=== PATIENT | female | born 1945 | race Hispanic/Latino ===

== ENCOUNTER 2019-04-06 13:24 | Inpatient (IN) | payer MEDICARE ==
--- NOTE | 2019-04-06 14:50 | RAD ---
KUB INDICATION: Renal stent placement COMPARISON: CT the abdomen and pelvis dated April 06, 2019 FINDINGS: Bowel gas: Nonspecific but without overt appearance of obstruction. Lung bases: Clear. Additional findings: There is a right ureteral stent that projects in expected position. There is pos terior lateral spinal instrumentation involving L3-L5 with laminectomies at L3-L5. Osseous structures: No acute osseous abnormality is demonstrated. IMPRESSION: 1. Right ureteral stent projects in the expected position.
--- NOTE | 2019-04-06 15:24 | PDOC.FPRHP ---
- History of Present Illness Chief Complaint: abdominal pain History of Present Illness: This is a 73yo F presenting to the ER today with right sided abdominal pain that started Friday. She endorses NV that started yesterday and today. She had a nephrostomy tube placed on 03/26/[address] Welch (urology from [facility]). She initially began with incontinence for several years and got a bladder mesh. She then started self cathing several years and having frequent UTIs. She then was seen by her urologist and noted to have worsening hydronephrosis which led to the stent placement. She has been having chills. Denies any chest pain, SOB. States she has a hx of being anemic and received blood prior to the stent placement. She is on iron and stool softeners and does report occasional loose stools. Endorses neuropathy in her feet. She has been taking her medications daily. She is currently on an abx from Dr. Ruano for her UTI. Per daughter at the bedside, she has been slightly more confused for the last day or so. She lives at home with her and is typically able to take care of herself and axox3. ED Course: 2g Meropenem - Allergies/Adverse Reactions Allergies Allergy/AdvReac Type Severity Reaction Status Date / Time codeine Allergy Verified 04/06/19 14:55 Penicillins Allergy Verified 04/06/19 14:55 - History PMHx: DM, gastroparesis, neuropathy PSHx: nephrology stent 03/26/19, back surgery (deteriorated disc), hysterectomy, cholecystectomy, bladder mesh FHx: grandmother - DM, brother - unknown cancer, father - lung cancer Social: denies alcohol/tobacco/drug use; lives at home with - Review of Systems General: reports: fever/chills. denies: weight/appetite/sleep changes, night sweats, fatigue ENT: denies: nasal congestion, rhinorrhea Respiratory: denies: cough, congestion, shortness of breath Cardiovascular: denies: chest pain, palpitation Gastrointestinal: reports: nausea, vomiting, diarrhea, abdominal pain. denies: constipation Genitourinary: denies: dysuria Skin: denies: rashes, lesions Musculoskeletal: denies: pain, tenderness, stiffness, swelling Neurological: denies: seizure, weakness - Vital signs BP: 114/54, MAP: 74, Pulse: 87, Resp: 21 (Non-Labored), Temp: 97.7 (Oral), Pain : 0, O2 sat: 98 on (Room Air), Time: 04/06/2019 13:49. Weight: 90Kg - Physical Exam Constitutional: awake, alert and oriented, well developed -Constitutional: mild distress HEENT: normocephalic and atraumatic, PERRLA, EOMI, grossly normal vision, grossly normal hearing, MMM Neck: supple, FROM Chest: no-tender to palpation, no lesions Heart: RRR, normal S1/S2, no murmurs/rubs/gallops Lungs: CTAB, no respiratory distress, good air movement, no rales/rhonchi, no wheezing, no retractions Abdomen: soft, bowel sounds present -Abdomen: TTP on right>left Musculoskeletal: normal structure, normal tone Neurological: no focal deficit Skin: no rash/lesions, good turgor, capillary refill <2 seconds Heme/Lymphatic: no unusual bruising or bleeding Psychiatric: normal mood and affect FMR H&P: Results - Labs Result Diagrams: 04/06/19 15:35 FMR H&P: A/P - Problem List (1) Malfunction of nephrostomy tube Current Visit: Yes Status: Acute Code(s): T83.098A - [facility] COMPL OF OTHER URINARY CATHETER, INITIAL ENCOUNTER (2) Hydronephrosis Current Visit: Yes Status: Chronic Code(s): N13.30 - UNSPECIFIED HYDRONEPHROSIS (3) Diabetes Current Visit: Yes Status: Chronic Code(s): E11.9 - TYPE 2 DIABETES MELLITUS WITHOUT COMPLICATIONS (4) Gastroparesis Current Visit: Yes Status: Chronic Code(s): K31.84 - GASTROPARESIS (5) UTI (urinary tract infection) Current Visit: Yes Status: Acute (6) Normocytic anemia Current Visit: Yes Status: Acute Code(s): D64.9 - ANEMIA, UNSPECIFIED - Plan Patient 73F with a PMHx of hydronephrosis, DM2, gastroparesis, urinary incontinence, diabetic neuropathy, and hydronephrosis s/p recent nephrostomy tube placement is admitted for: #Nephrostomy Tube Malfunction - worsening right hydronephrosis s/p nephrostomy tube placement on 03/26/19. - Abdominal CT: interval worsening of now very severe right hydroureteronephrosis despite presence of right ureteral stent; evidence for right stent malfunction; chronic severe left hydroureteronephrosis worse than before, chronic severe atrophy of left renal parenchyma, diffuse mural thickening of the urinary bladder, right suprarenal lymphadenopathy has worsened - Creatinine 3.5 at outside ED - Urology consulted from the ER, appreciate recommendations - Plan for IR percutaneous nephrostomy tube placement - NPO for procedure, will hold blood thinners #UTI - sediment in draining magallanes - UA UA+ nitrites, LE - prior urine cx resistant to levaquin - patient started on meropenem in the ED, will continue pending urine culture sensitivities #Normocytic Anemia -likely due to chronic kidney issues -recently had a blood transfusion -will continue to monitor h/h and transfuse as needed #DM, complicated by gastroparesis and neuropathy - Will continue home meds - ACHS accuchecks - ISS #Urinary Incontinence -self-caths 3x/day Diet: NPO VTE: SCDs DVT ppx: lovenox Code: FULL Dispo: admit to surgical, inpt for percutaneous nephrostomy tube placement Case discussed with Dr. Hugo FMR H&P: Upper Level - Plan Date/Time: 04/06/19 1522 I, Lynn Cadena MD, have evaluated this patient and agree with findings/plan as outlined by video production intern resident. Pertinent changes/additions are listed here. This is a 73yo F presenting today from [facility] for right sided abdominal pain s/p nephrostomy tube placement by urologist Dr. Ruano. Imaging at the outside ER showed worsening right hydronephrosis. Dr. Ruano unavailable so patient was sent here for repair/replacement of nephrostomy tube. Patient states that she has had abdominal pain since Friday and started with NV the last two days. The daughter is at the bedside who helped provide the hx. See video production intern note for full history/PE PE: General: mild distress HEENT: NC/AT, EOMI Pulm: CTAB Cardio: RRR, no M/R/G Abd: soft, TTP diffusely - more R>L MSK: FROM Psych: axox3, able to answer questions Plan: Malfunction of Nephrostomy Tube Patient with worsening right hydronephrosis s/p nephrostomy tube placement. - Urology Dr. Lacey consulted from the ER and plan for procedure. Appreciate recommendations. - Will keep NPO and hold blood thinners prior to procedure - On meropenem for UTI, last UTI MDR organism. Blood/Urine cx pending. Normocytic Anemia likely related to kidney issues. Pt did require blood transfusion prior to stent placement earlier this month. - Will continue to monitor closely and transfuse as needed DM complicated by gastroparesis and neuropathy - Continue home meds, SS Diet: NPO VTE: SCDs Code: FULL Dispo: admit to surgical floor, inpt Case discussed with Dr. Hugo Addendum - Attending - Attending Attestation Date/Time: 04/06/192055 I personally evaluated the patient and discussed the management with Dr. Hess/ Surinder I agree with the History, Examination, Assessment and Plan documented above with any addition or exceptions noted below.73 yo diabetic female with recurrent UTI and hx obstructive uropathy. Patient with ZACKARY on CKI secondary to obstructive uropathy s/p recent ureteral stent which is nonfunctional at this time. Urology consulted admit and place on broad spectrum antibiotics pending culture results and IR to perform percutaneous nephrostomy tube for right sided obstructive uropathy.
[2019-04-06 15:34] LABS: INR-International Normal Ratio 1.2; PTT 42.3 SEC (22.9-36.1); Prothrombin Time 15.1 SEC (12.0-14.7)
[2019-04-06 15:44] LABS: #Eosinphils 0.1 thou/uL (0.0-0.7); #Lymphocytes 0.8 thou/uL (1.20-3.40); #Monocytes 0.9 thou/uL (0.11-0.59); #Neutrophils 12.3 thou/uL (1.40-6.50); %Basophils 0.2 % (0.0-1.0); %Eosinophils 0.4 % (0.0-10.0); %Lymphocytes 5.5 % (21.0-51.0); %Monocytes 6.2 % (0.0-10.0); %Neutrophils 87.7 % (42.0-75.0); Hemoglobin 7.5 g/dL (12.0-16.0); Mean Corpuscular HGB CONC 33.3 g/dL (32.0-36.0); Mean Corpuscular Hemoglobin 31.5 pg (27.0-31.0); Mean Corpuscular Volume 94.6 fL (78.0-98.0); Mean Platelet Volume 9.4 fL (7.4-10.4); Platelet Count 234 thou/uL (130-400); RBC Distribution Width 15.6 % (11.5-14.5); Red Blood Cell (RBC) Count 2.39 mill/uL (4.20-5.40)
[2019-04-06] MEDS ORDERED: Meropenem 2 GM, Admixture Fee 1 EACH in Sodium Chloride 0.9% 100 ML IVPB SCH (16:30)
[2019-04-06] MEDS ORDERED: Acetaminophen 325 MG TAB PO PRN (17:27)
[2019-04-06] MEDS ORDERED: Ondansetron ODT 4 MG TAB PO PRN (17:27)
[2019-04-06] MEDS ORDERED: Dextrose 5% in Water 1,000 ML IV PRN (17:27)
[2019-04-06] MEDS ORDERED: Lactated Ringer's 1,000 ML IV SCH (17:27)
[2019-04-06] MEDS ORDERED: Ondansetron PF 4 MG/2 ML Vial IVP PRN (17:27)
[2019-04-06] MEDS ORDERED: HumaLOG 300 UNITS/3 ML VIAL SC PRN ×2 (17:27)
[2019-04-06 17:36] VITALS: BMI 31.5
[2019-04-06] MEDS: Sodium Chloride 0.9% 1,000 ML IV SCH (18:51)
[2019-04-06] MEDS: Docusate 100 MG CAP PO SCH (21:26)
[2019-04-06] MEDS: Famotidine/PF 20 mg/2ml Vial SLOW IVP SCH (21:26)
[2019-04-06] MEDS ORDERED: MEROPENEM 1 GM/50 ML 1 GM in Premix Bag 1 BAG IVPB SCH (22:00)
--- NOTE | 2019-04-07 00:22 | CON ---
DATE OF CONSULTATION: PRIMARY UROLOGIST: Dr. Dawit Nguyen. REASON FOR CONSULT: History of right hydronephrosis, status post ureteral stent. HISTORY OF PRESENT ILLNESS: Ms. Patel is a 73-year-old female, followed by Dr. Dawit Nguyen, [facility]. She presented to [facility], due to history of abdominal pain, with nausea. Subjective history of chills, ER clinical history as well as records from Dr. Nguyen's office, which I requested stat reviewed. The patient with history of chronic urinary retention, catheter dependent on CIC, she has a history of chronic kidney disease due to left grade 4 ureteral reflux with atrophic left kidney. Due to chronic right hydronephrosis, the patient underwent cystoscopy, right retrograde, dilation of the UVJ, ureteral stent placement on March 26, [address] Nguyen. She states that she has been catheterizing herself 3 times a day; however, the amount of return is somewhat obscure, as she is unable to tell me the exact amount of voiding urine amount. She has chronic renal insufficiency, has been provided Macrobid 100 mg 1 p.o. b.i.d. for [address] Nguyen based on her recent urine culture from March 18, 2019 from his office demonstrating multi-drug resistant Escherichia coli resistant to quinolones, sensitive to imipenem, ertapenem, Macrobid, tobramycin, Augmentin. CT of the abdomen and pelvis obtained from [place], which has been transferred to our system demonstrates atrophic left kidney, which I reviewed myself, severe right hydronephrosis with tortuous ureter, however, the stent is in good position. As she has hydronephrosis despite recent stent, I informed the patient regarding nephrostomy tube. The patient currently at [facility], Dr. Tavarez at bedside performed the ultrasound; however, there is decompression of her hydronephrosis on ultrasound. She did not have an indwelling Alexandra catheter when the CT was obtained, bladder is not significantly distended; however, there is a moderate amount of urine in the bladder on the CT scan. It appears that with an indwelling Alexandra catheter, her hydronephrosis on the right has resolved. Therefore, nephrostomy tube was terminated by Interventional Radiology. I did inform the emergency room to provide meropenem, based on her previous recent urine culture from her current urologist. Her baseline creatinine 2.0, per emergency room and was 3.5; however, I do not have the results. She is hemodynamically stable. Relates that she is comfortable after the Alexandra catheter has been placed. PAST MEDICAL HISTORY: Diabetes, gastroparesis, diabetic neuropathy. PAST SURGICAL HISTORY: Cysto, right ureteral dilatation, 6 x 24 double-J ureteral stent by Dr. Nguyen on March 26, 2019, hysterectomy, cholecystectomy, and history of mid urethral sling. FAMILY HISTORY: Positive for diabetes. SOCIAL HISTORY: Negative x3. Lives with her family. PHYSICAL EXAMINATION: VITAL SIGNS: Blood pressure 114/54, pulse 87, respirations 21, temperature 97.7 , pain currently rated minimal. GENERAL: The patient is somewhat fatigued, cooperative to physical exam. HEENT: Grossly unremarkable. HEART: Regular rate. LUNGS: Clear. ABDOMEN: Morbidly obese, protuberant. No rigidity. No rebound. No CVA tenderness. EXTREMITIES: No cyanosis, clubbing, or edema. NEUROLOGIC: No gross focal deficits. PSYCHIATRIC: Appears to be appropriate. PERTINENT LABORATORY AND IMAGING DATA: White count 14, hemoglobin 7.5, platelets 234, baseline creatinine per review of her previous urologist is 2.0, recent creatinine in [place] 3.5 CT of the abdomen and pelvis from [place], which I reviewed myself demonstrates atrophic left kidney, right hydroureteronephrosis with ureteral stent in the renal pelvis with tortuosity of the ureter. Bladder without Alexandra catheter. Urine culture from March 17, 2019 from her urologist demonstrates Escherichia coli sensitive to Augmentin, imipenem, Macrobid and Zosyn, resistant to Bactrim, quinolones. She has been on Macrobid 100 mg 1 p.o. b.i.d. for 10 days. IMPRESSION AND PLAN: 1. Ms. Patel is a 73-year-old female with history of diabetes, left atrophic kidney due to vesicoureteral reflux. 2. Chronic kidney disease. 3. 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 Nguyen. 4. Catheter dependent on CIC chronic urinary retention. Continue indwelling urethral Alexandra catheter, as she is likely catheterizing herself inefficiently, urine is turbid consistent with urinary tract infection. Recommend meropenem. I do not recommend Macrobid, as she presents with chronic renal insufficiency. I would recommend Infectious Disease consult, as she will require a PICC line, for prolonged antibiotic regimen. Continue indwelling urethral Alexandra catheter. As her hydronephrosis has resolved with indwelling Alexandra catheter, recommend medical treatment with antibiotics, indwelling Alexandra. Anticipate patient will be in- house for another 24-48 hours, ID consult to be initiated for IV antibiotics. The patient informed to follow up with her urologist upon discharge. Job ID: [id number] ARACELIS
[2019-04-07] MEDS: Sodium Chloride 0.9% 1,000 ML IV SCH ×4 (00:48→18:41)
[2019-04-07 05:16] LABS: #Basophils 0.1 thou/uL (0.0-0.2); #Eosinphils 0.2 thou/uL (0.0-0.7); #Lymphocytes 0.9 thou/uL (1.20-3.40); #Monocytes 0.8 thou/uL (0.11-0.59); #Neutrophils 9.1 thou/uL (1.40-6.50); %Basophils 0.5 % (0.0-1.0); %Eosinophils 1.5 % (0.0-10.0); %Lymphocytes 7.9 % (21.0-51.0); %Monocytes 6.9 % (0.0-10.0); %Neutrophils 83.2 % (42.0-75.0); Hemoglobin 7.8 g/dL (12.0-16.0); Mean Corpuscular HGB CONC 32.8 g/dL (32.0-36.0); Mean Corpuscular Hemoglobin 31.5 pg (27.0-31.0); Mean Platelet Volume 9.2 fL (7.4-10.4); Platelet Count 230 thou/uL (130-400); RBC Distribution Width 15.8 % (11.5-14.5); Red Blood Cell (RBC) Count 2.48 mill/uL (4.20-5.40); White Blood Cell (WBC) Count 10.9 thou/uL (4.8-10.8)
[2019-04-07 05:36] LABS: Anion Gap 13 mmol/L (10-20); BUN (Urea Nitrogen) 53 mg/dL (9.8-20.1); Calc. Creatinine Clearance 22 mL/min (70-130); Calcium 8.7 mg/dL (7.8-10.44); Carbon Dioxide 19 mmol/L (23-31); Chloride 109 mmol/L (98-107); Estimated GFR-MDRD 16; Glucose 91 mg/dL (83-110); Potassium 4.4 mmol/L (3.5-5.1); Sodium 137 mmol/L (136-145)
--- NOTE | 2019-04-07 06:36 | PDOC.FM ---
- Subjective Subjective: Pt was vomiting green emesis yesterday. Has been feeling somewhat better this AM. She feels dizzy when she moves her head to either side. Otherwise, she was told there would be no procedure per urology. Pt would like to drink some water. Reports she does not take anything at home like reglan 4 times per day for her known gastroparesis 2/2 to diabetes. - Objective MAR Reviewed: Yes Vital Signs & Weight: Vital Signs (12 hours) Temp Pulse Resp BP Pulse Ox 04/07/19 03:10 97.6 F 75 18 128/64 97 04/06/19 23:20 98.3 F 78 18 132/70 97 04/06/19 20:45 95 04/06/19 20:00 97.7 F 74 18 151/71 H 99 Weight Weight 80.739 kg I&O: 04/05/19 04/06/19 04/07/19 06:59 06:59 06:59 Intake Total 1780 Output Total 2024 Balance -245 Result Diagrams: 04/07/19 04:46 04/07/19 04:46 Phys Exam - Physical Examination Constitutional: NAD Respiratory: no wheezing, clear to auscultation bilateral Cardiovascular: RRR Gastrointestinal: soft (mild diffuse TTP, most tender just left to midline near epigastrium) Neurological: non-focal Psychiatric: normal affect, A&O x 3 Dx/Plan (1) Malfunction of nephrostomy tube Code(s): T83.098A - [facility] COMPL OF OTHER URINARY CATHETER, INITIAL ENCOUNTER Status: Acute (2) Normocytic anemia Code(s): D64.9 - ANEMIA, UNSPECIFIED Status: Acute (3) UTI (urinary tract infection) Status: Acute (4) Diabetes Code(s): E11.9 - TYPE 2 DIABETES MELLITUS WITHOUT COMPLICATIONS Status: Chronic (5) Gastroparesis Code(s): K31.84 - GASTROPARESIS Status: Chronic (6) Hydronephrosis Code(s): N13.30 - UNSPECIFIED HYDRONEPHROSIS Status: Chronic - Plan Plan: Patient 73F with a PMHx of hydronephrosis, DM2, gastroparesis, urinary incontinence, diabetic neuropathy, and hydronephrosis s/p recent nephrostomy tube placement is admitted for: #Nephrostomy Tube Malfunction # R Hydronephrosis - worsening right hydronephrosis s/p nephrostomy tube placement on 03/26/19. Improved w/ Magallanes catheter - Abdominal CT: interval worsening of now very severe right hydroureteronephrosis despite presence of right ureteral stent; evidence for right stent malfunction; chronic severe left hydroureteronephrosis worse than before, chronic severe atrophy of left renal parenchyma, diffuse mural thickening of the urinary bladder, right suprarenal lymphadenopathy has worsened - Creatinine 3.5 at outside ED. Improved. Baseline ~2. - Urology consulted from the ER, appreciate recommendations. Will continue magallanes catheter and consult ID. #UTI - sediment in draining magallanes - UA UA+ nitrites, LE - prior urine cx resistant to levaquin - patient started on meropenem in the ED, will continue pending urine culture sensitivities - consult ID. appreciate recs. #Normocytic Anemia -likely due to chronic kidney issues -recently had a blood transfusion -will continue to monitor h/h and transfuse as needed #DM, complicated by gastroparesis and neuropathy - Will continue home meds - ACHS accuchecks - ISS - will consider reglan 4x daily for gastroparesis #Urinary Incontinence -self-caths 3x/day. We will continue Magallanes Diet: NPO DVT ppx: lovenox Code: FULL Dispo: plan for d/c home after evaluation by ID physician and when patient is feeling better. LOS > 48H. Addendum - Attending - Attending Attestation Date/Time: 04/07/19 9852 I personally evaluated the patient and discussed the management with Dr. Rodriguez I agree with the History, Examination, Assessment and Plan documented above with any addition or exceptions noted below.Patient urine output improved with magallanes didnt look like nephrostomy was needed will await recommendations per ID for further antibiotics and length of treatment appreciate specialist input.
[2019-04-07] MEDS: Famotidine/PF 20 mg/2ml Vial SLOW IVP SCH (08:43)
[2019-04-07] MEDS ORDERED: FLU VACC TS2019-20(65YR UP)/PF 180 MCG/0.5 ML SYRINGE IM ONE (09:00)
[2019-04-07] MEDS ORDERED: Prevnar 13-Val Conj/PF 0.5 ML SYRINGE IM ONE (09:00)
--- NOTE | 2019-04-07 09:07 | PRG ---
DATE OF SERVICE: 04/07/2019 SUBJECTIVE: The patient's family at bedside, feels better. Denies flank pain or abdominal discomfort. OBJECTIVE: VITAL SIGNS: Stable at temperature 97, pulse 73, respiratory rate 18, oxygen saturations 96, oxygen saturation 146/68. I's and O's; 1779 in, 2024 out. ABDOMEN: Soft, nontender, and nondistended. No rigidity. No rebound. GENITOURINARY: Alexandra catheter demonstrating some turbid urine, concentrated yellow. PERTINENT LABORATORY DATA: Creatinine 2.9, her baseline creatinine is around 2.0. White count decreased from 10, hemoglobin 7.8, and platelet 230. IMPRESSION AND PLAN: 1. Ms. Patel is a 73-year-old morbidly obese female, followed by Dr. [facility]. Recent cysto, right ureteral stent. 2. History of chronic urinary retention, previously on CIC at home, failed outpatient CIC. 3. Right hydronephrosis with ureteral stent. Renal ultrasound yesterday performed, this demonstrates decompressed right hydronephrosis with indwelling Alexandra catheter. Her hydronephrosis due to incomplete emptying, as she has been performing CIC suboptimally at home. We will continue indwelling urethral Alexandra catheter. Previous history of Escherichia coli, multi-drug resistant, sensitive to meropenem. She was previously on Macrobid, which I do not recommend due to chronic renal insufficiency. Infectious Disease consult has been ordered, will likely require PICC line, outpatient meropenem. patient can be discharged home. When seen by Infectious Disease, antibiotic regimen provided. She will be discharged with indwelling Alexandra catheter and follow up with her urologist in [place]. Job ID: [id number] [facility]
[2019-04-07] MEDS: Docusate 100 MG CAP PO SCH ×2 (09:14→20:13)
[2019-04-07] MEDS: Pioglitazone HCl 15 MG TAB PO SCH (09:17)
[2019-04-07] MEDS: Glimepiride 4 MG TAB PO SCH (09:18)
[2019-04-07] MEDS: Meropenem 500 MG in Sodium Chloride 0.9% 100 ML IVPB SCH ×2 (10:24→22:04)
--- NOTE | 2019-04-07 11:01 | ULT ---
US Renal Bilateral STANDARD History: Evaluate for hydronephrosis Comparison: CT examination same day Findings: Real-time grayscale and color evaluation of the right kidney was performed to evaluate for hydronephrosis. Left kidney is atrophic with mild hydronephrosis. Moderate right hydronephrosis. Right kidney measures 13.5 x 6.1 x 5.2 cm and the left kidney measures 7.8 x 3.8 x 4 cm. Impression: Mild left and moderate right hydronephrosis.
[2019-04-07] MEDS ORDERED: Iopamidol 370 76% 50 ML VIAL FS ONE (13:58)
--- NOTE | 2019-04-07 16:58 | CON ---
DATE OF CONSULTATION: 04/07/2019 REASON FOR CONSULTATION: Hydronephrosis, neurogenic bladder with recurrent UTIs. HISTORY OF PRESENT ILLNESS: A 73-year-old patient with a history of quite severe neuropathy associated with type 2 diabetes with gastroparesis and neurogenic bladder which has required in-and-out catheterization. The patient lives in [place] with her and follows up with the primary care physician in the area, and has a urologist in [place]. She has had stents placed in the past reportedly, but most of her hydronephrosis is secondary to the bladder distention from the neuropathy. She has had cystoscopy and dilation of the right UVJ in 03/2019, but she has been self catheterizing only 3 times per day. Recently, she was given Macrobid for 10 days with a multidrug-resistant E coli being retrieved in the urine culture. At this time, she presented to the emergency room with worsening right-sided abdominal pain and bilateral flank pain, which started about 3 days before admission. She was having some chills identified as well. No headaches. No visual symptoms, sore throat, odynophagia, or dysphagia. Some vomiting intermittently whenever she eats, which is a chronic symptom. No dyspnea or chest pain. Left flank pain noted. No dysuria. She does self-catheterize 3 times a day at home. No joint symptoms. MEDICAL HISTORY: 1. Type 2 diabetes. 2. Neuropathy. 3. Gastroparesis. 4. Neurogenic bladder with in-and-out catheterization. 5. Prior stents. 6. Laminectomy. 7. Hysterectomy. 8. Cholecystectomy. 9. Bladder mesh placement. FAMILY HISTORY: Type 2 diabetes and lung cancer. SOCIAL HISTORY: Never smoker. Lives in [place] with . CURRENT MEDICATIONS: 1. P.r.n. medications. 2. Colace. 3. Pepcid. 4. Amaryl. 5. Insulin. 6. Meropenem. 7. Zofran. 8. Protonix. PHYSICAL EXAMINATION: VITAL SIGNS: T-max 98.8, blood pressure 130/60, pulse 76, respirations 20, and O2 saturation 99. SKIN: The patient has a peripheral IV access and is voiding with a Alexandra catheter. No lymphadenopathy. HEENT: Ocular movements conjugate. Sclerae white. Pupils are equal. Oral cavity with no nome teeth in the upper maxilla, quite a few teeth in the lower. Oral mucosa is normal. NECK: Supple. No jugular vein distention. LUNGS: Symmetric. Clear breath sounds. BACK: No back tenderness. HEART: S1 and S2. Regular rate. No S3 or S4. ABDOMEN: Mildly tender in the right flank area. No ascites or organomegaly noted. No bladder distention. EXTREMITIES: No joint inflammatory activity. Moves extremities equally. NEUROLOGIC: Awake, alert, oriented, follows commands. Speech is normal. LABORATORY DATA: White cell count 14,000 down to 10.9, hemoglobin 7.5, MCV 94, and platelets 234 with 87% neutrophils. INR 1.2. Sodium 137 and creatinine 2.92. Microbiology with a quite susceptible E coli, retrieved from the urine this time. The previous sample yielded very resistant pathogen susceptible only to meropenem, aminoglycoside, Macrodantin. ASSESSMENT: Type 2 diabetes with severe neuropathy and both gastroparesis and neurogenic bladder, requiring in and out catheterization, which the patient is unable to do according to recommendations and she is inadequately self catheterized with development of hydronephrosis and renal insufficiency. DISCUSSION: The patient will require continuation of antimicrobial therapy with ertapenem which can be administered once daily in the outpatient setting. PICC line placement. Treat for a total of 2 weeks or less. Evidently, the endpoint here, we will not be sterilization of the urine because she will need continuing indwelling Alexandra catheterization. She will be at risk for losing her renal function further and ended up with in dialysis or on dialysis. Job ID: [id number]
[2019-04-07] MEDS: Dextrose 50% Abboject 50 ML SYRINGE SLOW IVP PRN (17:27)
[2019-04-07 18:05] LABS: Glucose 251 mg/dL (83-110)
--- NOTE | 2019-04-07 19:51 | CON ---
DATE OF CONSULTATION: HISTORY OF PRESENT ILLNESS: Damari Patel is a 73-year-old female, who has a persistent UTI and with chronic kidney disease, and I have been asked to see her regarding placement of a Melo catheter for intravenous antibiotics. She is followed by Dr. Lacey. She has a right hydronephrosis with the ureteral stent due to incomplete emptying, doing the CIC at home. Apparently once discharged, she will follow up with the urologist in [place]. In addition, the patient is having some abdominal discomfort. She has had an infraumbilical midline incision for , open cholecystectomy right subcostal, and her medial upper abdomen. She has an incisional hernia, it is tender. ALLERGIES: CODEINE AND PENICILLINS. HABITS: Tobacco, none. Alcohol, none. MEDICATIONS: 1. Glimepiride. 2. Omeprazole. 3. Hiprex. 4. Pioglitazone. 5. Meropenem. PAST SURGICAL HISTORY: Open cholecystectomy right subcostal scar, infraumbilical incision C-sections, right ureteral stent, and lumbar surgery. SOCIAL HISTORY: The patient lives with her . Her family is present. REVIEW OF SYSTEMS: Noncontributory otherwise. No cardiac symptoms. No cardiac history. PHYSICAL EXAMINATION: VITAL SIGNS: 5 feet 3 inches, 178 pounds, and 31 BMI. 97.5, 76, 20, and 134/68. HEAD, EARS, EYES, NOSE, AND THROAT: Unremarkable. LUNGS: Clear to auscultation. CARDIAC: Regular rate and rhythm without murmur or gallop. ABDOMEN: Soft and obese. Right subcostal scar, medial scar, and incisional hernia that is tender. Infraumbilical scar. Protuberant abdomen. EXTREMITIES: Unremarkable. LABORATORY DATA: White count 10 and hemoglobin 7.8. Sodium 137, potassium 4.4, BUN 53, creatinine 2.92, and GFR 16. ASSESSMENT AND PLAN: 1. In need of long-term intravenous antibiotics for resistant urinary tract infection with a right ureteral stent. Escherichia coli is resistant. Dr. Cabrales has seen her. Plan placement of a Melo catheter tomorrow, IJ cuffed tunneled catheter. 2. Obesity. 3. Diabetes mellitus. 4. Incisional hernia. Plan CT scan abdomen without IV contrast, but with p.o. contrast to assess the incisional hernia. 5. Chronic kidney disease. Job ID: [id number]
[2019-04-07] MEDS: Dextrose 5 % And 0.9 % NaCl 1,000 ML IV SCH (20:14)
--- NOTE | 2019-04-07 22:22 | CT ---
CT of the abdomen and pelvis: 04/07/2019 COMPARISON: 04/06/2019 HISTORY: Right-sided pain, history of cholecystectomy, appendectomy, and lumbar spine surgery TECHNIQUE: Axial CT imaging obtained at 5 mm intervals from lung bases through pubic symphysis with o ral contrast. Coronal and sagittal reformatted imaging obtained. FINDINGS: The lack of IV contrast limits assessment of the viscera, vascular structures, and for lymp hadenopathy. The visualized lung bases are unremarkable. No free intraperitoneal air. There is a Alexandra catheter within the urinary bladder. There is nonspecific circumferential urinary bladder wall thickening. There is a double-J ureteral stent on the right. The proximal curl of the double-J ureteral stent on the right is within the region of the renal pelvis. There is questionable mild urot helial thickening in the region of the renal pelvis and proximal ureter on the right, which may reflect inflammatory change. Correlation with urinalysis suggested. No evidence for hydronephrosis on the right. The left kidney is markedly atrophic. The liver, spleen, pancreas, and adrenal glands demonstrate no acute findings. The marked hydronephrosis seen bilaterally on the prior examination has resolved following placement of the Alexandra catheter. There are multiple nonspecific mildly enlarged lymph nodes within the retroperitoneum posterior to th e right renal vein and posterior to the inferior vena cava which measure up to approximately 1.4 cm in short axis dimension. There is no evidence for bowel inflammatory change or bowel obstruction. There is a fat-containing um bilical hernia. Superior to this is a additional ventral hernia just to the right of midline, also containing fat. There is scattered atherosclerotic calcification of the abdominal aorta and its branches. Review of the osseous structures demonstrates no acute findings. There is multilevel lower lumbar spi ne fusion hardware. IMPRESSION: Interval resolution of previously noted bilateral hydronephrosis. Mild urothelial thicken ing on the right may be on the basis of recent obstruction or could be on the basis of inflammatory change. Correlation with urinalysis advised. There is nonspecific retroperitoneal lymphadenopathy on the right in the region of the renal vasculature and IVC for which short-term follow-up CT examination is suggested in 2-3 months.
[2019-04-08] MEDS: Dextrose 50% Abboject 50 ML SYRINGE SLOW IVP PRN ×2 (01:11→07:39)
--- NOTE | 2019-04-08 06:20 | PDOC.FM ---
- Subjective Subjective: Pt is feeling well this AM. Ate CLD and FLD for dinner. She understands she is to have catheter placed for IV abx. Family member states she has required halfway abx previously and they went to [facility] for daily abx administration. She has home health nursing currently who comes out once per week. Per patient the procedure today is scheduled for 1 pm. - Objective MAR Reviewed: Yes Vital Signs & Weight: Vital Signs (12 hours) Temp Pulse Resp BP Pulse Ox 04/08/19 03:15 97.4 F L 62 20 119/61 100 04/07/19 23:20 97.7 F 77 18 134/57 L 100 04/07/19 20:20 97.7 F 59 L 18 148/65 H 99 Weight Weight 80.739 kg I&O: 04/06/19 04/07/19 04/08/19 06:59 06:59 06:59 Intake Total 1780 3120 Output Total 2025 1200 Balance -245 1920 Result Diagrams: 04/08/19 06:53 04/08/19 06:53 Phys Exam - Physical Examination Constitutional: NAD Respiratory: no wheezing, clear to auscultation bilateral Cardiovascular: RRR Gastrointestinal: soft, non-tender, no distention, positive bowel sounds Psychiatric: A&O x 3 Dx/Plan (1) Malfunction of nephrostomy tube Code(s): T83.098A - [facility] COMPL OF OTHER URINARY CATHETER, INITIAL ENCOUNTER Status: Acute (2) Normocytic anemia Code(s): D64.9 - ANEMIA, UNSPECIFIED Status: Acute (3) UTI (urinary tract infection) Status: Acute (4) Diabetes Code(s): E11.9 - TYPE 2 DIABETES MELLITUS WITHOUT COMPLICATIONS Status: Chronic (5) Gastroparesis Code(s): K31.84 - GASTROPARESIS Status: Chronic (6) Hydronephrosis Code(s): N13.30 - UNSPECIFIED HYDRONEPHROSIS Status: Chronic - Plan Plan: Patient 73F with a PMHx of hydronephrosis, DM2, gastroparesis, urinary incontinence, diabetic neuropathy, and hydronephrosis s/p recent nephrostomy tube placement is admitted for: #Nephrostomy Tube Malfunction # R Hydronephrosis - worsening right hydronephrosis s/p nephrostomy tube placement on 03/26/19. Improved w/ Magallanes catheter - Abdominal CT: interval worsening of now very severe right hydroureteronephrosis despite presence of right ureteral stent; evidence for right stent malfunction; chronic severe left hydroureteronephrosis worse than before, chronic severe atrophy of left renal parenchyma, diffuse mural thickening of the urinary bladder, right suprarenal lymphadenopathy has worsened - Creatinine 3.5 at outside ED. Improved. Baseline ~2. - Urology consulted from the ER, appreciate recommendations. Will continue magallanes catheter. F/U w/ urology in [place] on discharge. - ID recommends ertapenem daily as outpatient. Consulted Gen Surg for placement of Melo catheter. #UTI - sediment in draining magallanes - UA UA+ nitrites, LE - prior urine cx resistant to levaquin - patient started on meropenem in the ED, will continue pending urine culture sensitivities - consult ID. appreciate recs. # Incisional Hernia - CT abd today w/ PO contrast. Ordered by Gen Surg since pt complaining of abd pain. # Normocytic Anemia -likely due to chronic kidney issues -recently had a blood transfusion -will continue to monitor h/h and transfuse as needed #DM, complicated by gastroparesis and neuropathy - Will continue home meds - ACHS accuchecks - ISS - will consider reglan 4x daily for gastroparesis #Urinary Incontinence -self-caths 3x/day. We will continue Magallanes Diet: NPO DVT ppx: lovenox Code: FULL Dispo: anticipate d/c no earlier than late evening or tomorrow, pending placement of Melo catheter, CT abd, and organization of outpatient abx administration. Addendum - Attending - Attending Attestation Date/Time: 04/08/19 5228 I personally evaluated the patient and discussed the management with Dr. Rodriguez I agree with the History, Examination, Assessment and Plan documented above with any addition or exceptions noted below. Patient treated for hypogylcemia with glucagon and D50 continue D5NS and stop sulfonuylurea. Patient with hickaman cath for outpt IV per ID recs and will go rec Nephrology consult and f/u outpt as well as Urologist in [place].
[2019-04-08] MEDS ORDERED: Lidocaine 1% w/Epinephrine 1:100K 20 ML VIAL ONE ×2 (06:47→10:18)
[2019-04-08] MEDS ORDERED: Bupivacaine 0.25% HCL 30 ML VIAL ONE (06:47)
[2019-04-08] MEDS: Dextrose 5 % And 0.9 % NaCl 1,000 ML IV SCH ×3 (06:49→21:58)
[2019-04-08 07:17] LABS: Anion Gap 12 mmol/L (10-20); BUN (Urea Nitrogen) 35 mg/dL (9.8-20.1); Calc. Creatinine Clearance 29 mL/min (70-130); Calcium 8.3 mg/dL (7.8-10.44); Carbon Dioxide 17 mmol/L (23-31); Chloride 110 mmol/L (98-107); Estimated GFR-MDRD 22; Potassium 4.1 mmol/L (3.5-5.1); Sodium 135 mmol/L (136-145)
[2019-04-08 07:19] LABS: #Basophils 0.1 thou/uL (0.0-0.2); #Eosinphils 0.1 thou/uL (0.0-0.7); #Lymphocytes 1.1 thou/uL (1.20-3.40); #Monocytes 0.5 thou/uL (0.11-0.59); #Neutrophils 6.6 thou/uL (1.40-6.50); %Basophils 0.7 % (0.0-1.0); %Eosinophils 1.7 % (0.0-10.0); %Lymphocytes 12.9 % (21.0-51.0); %Monocytes 5.7 % (0.0-10.0); %Neutrophils 79.1 % (42.0-75.0); Hemoglobin 8.7 g/dL (12.0-16.0); Mean Corpuscular HGB CONC 33.1 g/dL (32.0-36.0); Mean Corpuscular Hemoglobin 32.4 pg (27.0-31.0); Mean Corpuscular Volume 98.1 fL (78.0-98.0); Mean Platelet Volume 8.5 fL (7.4-10.4); Platelet Count 280 thou/uL (130-400); RBC Distribution Width 15.9 % (11.5-14.5); Red Blood Cell (RBC) Count 2.69 mill/uL (4.20-5.40); White Blood Cell (WBC) Count 8.3 thou/uL (4.8-10.8)
[2019-04-08 07:22] LABS: Glucose 45 mg/dL (83-110)
[2019-04-08] MEDS: Famotidine/PF 20 mg/2ml Vial SLOW IVP SCH (07:47)
[2019-04-08] MEDS: Docusate 100 MG CAP PO SCH ×2 (08:19→20:06)
[2019-04-08] MEDS: Pioglitazone HCl 15 MG TAB PO SCH (08:19)
[2019-04-08] MEDS: Glimepiride 4 MG TAB PO SCH (08:19)
--- NOTE | 2019-04-08 08:43 | PRG ---
DATE OF SERVICE: 04/08/2019 SUBJECTIVE: The patient is feeling better, daughter at bedside. OBJECTIVE: VITAL SIGNS: Stable. I's and O's; 4780 in, 2250 out. ABDOMEN: Soft, nontender, and nondistended. No rigidity. No rebound. EXTREMITIES: No cyanosis, clubbing, or edema. GENITOURINARY: Alexandra catheter has much cleared, dilute yellow urine. LABORATORY DATA: White count decreased from 14 to 8, hemoglobin 8.7, and platelets 280. Creatinine this morning is 2.1, which is her baseline per notes at [facility]. IMPRESSION AND PLAN: Ms. Patel is a 73-year-old female with history of left atrophic kidney, right hydronephrosis due to ureteral stricture, status post dilatation stent by Dr. Nguyen. Failed outpatient CIC resulting in right hydronephrosis, resolved with indwelling Alexandra catheter. Her urine sediment debris has significantly improved with indwelling Alexandra catheter and IV fluids. Renal function back to her baseline. The patient can be discharged after Melo, with IV antibiotics per Dr. Cabrales as meropenem was advised due to multi-drug resistant urinary tract infection. The patient advised to follow up with her urologist next week. The patient needs to be just discharged with indwelling Alexandra catheter as she has failed outpatient CIC for neurogenic bladder. From my perspective, she can be discharged after Melo. Job ID: [id number] MTDD
[2019-04-08] MEDS: Meropenem 500 MG in Sodium Chloride 0.9% 100 ML IVPB SCH ×2 (09:50→21:57)
[2019-04-08] MEDS ORDERED: Sodium Chloride 0.9% 0 ML ONE (10:18)
[2019-04-08] MEDS ORDERED: Bupivacaine PF 0.5% 30 ML VIAL ONE (10:18)
[2019-04-08] MEDS ORDERED: Fentanyl 100 MCG/2 ML VIAL ONE ×2 (10:30→13:23)
[2019-04-08] MEDS ORDERED: Dextrose 50% Abboject 50 ML SYRINGE ONE (11:01)
--- NOTE | 2019-04-08 15:14 | RAD ---
EXAM: XR Chest 1 View Portable PROVIDED CLINICAL HISTORY: Central line placement COMPARISON: 06/14/2012 FINDINGS: Cardiac and mediastinal silhouette is within normal limits. Left IJ dialysis catheter is noted, tip o f which projects in expected location of cavoatrial junction. No focal consolidation, pleural fluid or pneumothorax apparent. Sequela of prior, healed trauma involving left upper chest wall. Vascular c alcification redemonstrated. IMPRESSION: No evidence for an acute cardiopulmonary process.
--- NOTE | 2019-04-08 15:44 | PRG ---
DATE OF SERVICE: 04/08/2019 Ms. Patel underwent placement of Melo catheter, left IJ. It is noted that she has chronic kidney disease stage 4, on CAT scan atrophic left kidney and hydronephrotic right kidney, status post ureteral stenting, decompressing that on recent CAT scan. Hydronephrosis has resolved. She has a painful abdominal mass above her umbilicus, indicative of an incisional hernia. CAT scan revealed fatty tissue in this, but no bowel. I have told the patient and her daughter that this can be repaired in the future with a robot, minimally invasive outpatient approach, but this should be done at a later time once she is over her UTI. The patient has urologist whom she sees in [place]. The patient lives in [place] with chronic kidney disease. Considering her chronic kidney disease, GFR 22. I have asked Dr. Mckeon to see her, Nephrology to follow her to maximize renal function and prolonged renal function. I have also ordered ultrasound vein mapping for future dialysis access. At this point, I will see her as needed this hospitalization. She should follow up with me in the future whenever if dialysis access is necessary and in the future to consider robot mesh repair of incisional hernia, which is painful bothersome to her. There is no bowel. There is only fat incarcerated and there is no risk for obstruction bowel. I should also see in the office in the next 7 weeks for removal of Melo catheter when she has completed her IV antibiotics. Job ID: [id number]
--- NOTE | 2019-04-08 15:52 | OP ---
DATE OF PROCEDURE: 04/08/2019 PREOPERATIVE DIAGNOSES: 1. Chronic kidney disease. 2. Right hydronephrosis with a stent. 3. Refractory urinary tract infection with resistant organisms. POSTOPERATIVE DIAGNOSES: 1. Chronic kidney disease. 2. Right hydronephrosis with a stent. 3. Refractory urinary tract infection with resistant organisms. PROCEDURE PERFORMED: Left internal jugular Melo dual-lumen catheter. Ultrasound and fluoroscopy used. ANESTHESIA: Sedation and local with 0.5% Marcaine 30 mL mixed with 1% Xylocaine with epinephrine 20 mL. DESCRIPTION OF PROCEDURE: The patient was taken to the operating room, where in the supine position, neck and chest were prepared with ChloraPrep and draped in routine fashion. Local anesthetic was infiltrated in the skin and subcutaneous tissue about the operative site. Under ultrasound guidance, left internal jugular vein was cannulated with a trocar and catheter and J-wire threaded. Trocar and catheter removed. J-wire entrance site enlarged sharply. Stab incision was made over the left chest. Using a tunneling device, the dual lumen Melo catheter tunneled between the 2 incisions, placed the fabric cuff beneath the skin exit site over the left chest. Catheter secured with 2 interrupted sutures of 3-0 nylon and sterile dressing applied. Dilator and Peel-Away sheath placed over the J-wire into the superior vena cava under fluoroscopic visualization, moving the dilator and J-wire. Catheter placed through the Peel-Away sheath after Peel-Away sheath removed. Fluoroscopically, catheter noted to be in good position in the superior vena cava. Platysma was approximated with 4-0 Monocryl, skin with subdermal 4-0 Monocryl, and [place] glue applied. Each port aspirated blood, flushed with heparinized saline solution. Job ID: [id number]
--- NOTE | 2019-04-08 16:31 | ULT ---
ULTRASOUND VESSEL MAPPING FOR DIALYSIS ACCESS: 04/08/19 HISTORY: End-stage renal disease. COMPARISON: None. FINDINGS: Real time bond scale, color and spectral analysis of the bilateral upper extremity vasculature was pe rformed. RIGHT UPPER EXTREMITY BRACHIAL ARTERY: 3.5 mm RADIAL ARTERY: 1.8 mm ULNAR ARTERY: 3.5 mm CEPHALIC VEIN Proximal Arm: 1.3 mm Mid Arm: 1.1 mm Distal Arm: 1.8 mm Antecubital Fossa: 1.6 mm Proximal Forearm: 1.1 mm Mid Forearm: 1.0 mm Distal Forearm: 1.2 mm BASILIC VEIN Proximal Arm: 2.9 mm Mid Arm: 2.0 mm Distal Arm: 2.2 mm Antecubital Fossa: 1.8 mm Proximal Forearm: 1.1 mm Mid Forearm: 0.8 mm Distal Forearm: Not visualized LEFT UPPER EXTREMITY BRACHIAL ARTERY: 3.7 mm RADIAL ARTERY: 1.7 mm ULNAR ARTERY: 2.2 mm CEPHALIC VEIN Proximal Arm: 3.4 mm Mid Arm: 4.0 mm Distal Arm: 3.7 mm Antecubital Fossa: 4.5 mm Proximal Forearm: 1.4 mm Mid Forearm: 1.2 mm Distal Forearm: 1.1 mm BASILIC VEIN Proximal Arm: 3.7 mm Mid Arm: 2.3 mm Distal Arm: 1.3 mm Antecubital Fossa: 1.4 mm Proximal Forearm: 2.5 mm Mid Forearm: 1.5 mm Distal Forearm: 1.8 mm IMPRESSION: Vascular size as above. POS: OFF
--- NOTE | 2019-04-08 16:48 | CON ---
DATE OF CONSULTATION: REASON FOR CONSULTATION: Elevated creatinine. HISTORY OF PRESENTING ILLNESS: This is a very pleasant 73-year-old female with a baseline creatinine of 2.9 on admission, which is improved to 2.19 after a Alexandra catheter was placed. 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 The patient is resting without any nausea, vomiting, or chest pain. PAST MEDICAL HISTORY: Significant for CKD, hypertension, multiple episodes of acute kidney injury, history of anemia, history of morbid obesity, hypertension, diabetic gastroparesis, multiple urologic surgery, cholecystectomy, hysterectomy, and ureteral stent. FAMILY HISTORY: Negative for ESRD. ALLERGIES: REVIEWED. MEDICATIONS: Home medications list reviewed. Hospital medications list reviewed. REVIEW OF SYSTEMS: 15-point review of system was performed and negative except for positives noted above. HEENT: Eyes intact, no diplopia. Ears: No hearing loss or earache. Nose: No discharge or bleeding. Chest: No cough or phlegm. Abdomen: No nausea or vomiting. Genitourinary: No hematuria. No Alexandra catheter. Musculoskeletal: No low back pain. No joint swelling or pain. Neurological: No syncope. No seizures. Skin: No complaints of rash or itching. Psychiatric: No depression. Constitutional: No weight loss or loss of appetite. PHYSICAL EXAMINATION: General: The patient is awake and alert. Vital Signs: Afebrile, pulse 73, breathing at 16, blood pressure 131/76. HEENT: Head normocephalic and atraumatic. Eyes intact, no ulcers. Nose intact, no ulcers. Ears intact, no ulcers. Neck: Supple. No JVD. Chest: Symmetrical and clear. Cardiovascular: Shows S1 and S2, no rub, no murmur. Gastrointestinal: Abdomen is soft, bowel sounds positive. Extremities: Show no edema or ulcers. Skin: Shows no rash or petechiae. Musculoskeletal: Shows no joint swelling or stiffness. Genitourinary: Shows no Alexandra or CVA tenderness. Neurologic: Motor intact. Cranial nerves intact. LABORATORY DATA: Labs reviewed. ASSESSMENT AND PLAN: 1. Acute kidney injury with chronic kidney disease, most likely due to progressive chronic hydronephrosis and possibly CAKUT. Urology's plan noted. Agree with Dr. Lacey's plan. 2. Hypertension, stable. 3. Anemia, stable. 4. Medication based on GFR appropriate. I will recheck labs in the morning and we will adjust medications appropriately. 5. Medication based on GFR, I would avoid Macrobid use. No indication for dialysis at this time. Job ID: [id number]
[2019-04-09 05:15] LABS: Hemoglobin 7.7 g/dL (12.0-16.0)
[2019-04-09] MEDS: Dextrose 5 % And 0.9 % NaCl 1,000 ML IV SCH (05:39)
[2019-04-09 06:09] LABS: Anion Gap 11 mmol/L (10-20); BUN (Urea Nitrogen) 25 mg/dL (9.8-20.1); Calc. Creatinine Clearance 33 mL/min (70-130); Calcium 7.6 mg/dL (7.8-10.44); Carbon Dioxide 18 mmol/L (23-31); Chloride 113 mmol/L (98-107); Estimated GFR-MDRD 26; Glucose 95 mg/dL (83-110); Potassium 3.7 mmol/L (3.5-5.1); Sodium 138 mmol/L (136-145)
--- NOTE | 2019-04-09 06:23 | PDOC.FM ---
- Subjective Subjective: Pt is feeling well this AM. Her neck is somewhat sore and bruised from where they placed Melo catheter. Otherwise, she ate well after surgery. Daughter had questions regarding the proper diet for pt's kidneys and gastroparesis. - Objective MAR Reviewed: Yes Vital Signs & Weight: Vital Signs (12 hours) Temp Pulse Resp BP Pulse Ox 04/09/19 04:49 97.9 F 91 18 130/66 97 04/09/19 00:21 98.4 F 89 20 117/65 100 04/08/19 20:07 97.5 F L 89 18 151/73 H 99 04/08/19 20:05 97.5 F L 89 18 151/73 H 99 Weight Weight 80.739 kg I&O: 04/07/19 04/08/19 04/09/19 06:59 06:59 06:59 Intake Total 1780 4780 2280 Output Total 20240 1999 Balance -245 2530 280 Result Diagrams: 04/09/19 04:54 04/09/19 04:54 Phys Exam - Physical Examination Constitutional: NAD Respiratory: no wheezing, clear to auscultation bilateral Cardiovascular: RRR Gastrointestinal: soft, non-tender, no distention, positive bowel sounds Musculoskeletal: no edema Psychiatric: normal affect, A&O x 3 Dx/Plan (1) Malfunction of nephrostomy tube Code(s): T83.098A - [facility] COMPL OF OTHER URINARY CATHETER, INITIAL ENCOUNTER Status: Acute (2) Normocytic anemia Code(s): D64.9 - ANEMIA, UNSPECIFIED Status: Acute (3) UTI (urinary tract infection) Status: Acute (4) Diabetes Code(s): E11.9 - TYPE 2 DIABETES MELLITUS WITHOUT COMPLICATIONS Status: Chronic (5) Gastroparesis Code(s): K31.84 - GASTROPARESIS Status: Chronic (6) Hydronephrosis Code(s): N13.30 - UNSPECIFIED HYDRONEPHROSIS Status: Chronic - Plan Plan: Patient 73F with a PMHx of hydronephrosis, DM2, gastroparesis, urinary incontinence, diabetic neuropathy, and hydronephrosis s/p recent nephrostomy tube placement is admitted for: #Nephrostomy Tube Malfunction # R Hydronephrosis - worsening right hydronephrosis s/p nephrostomy tube placement on 03/26/19. Improved w/ Magallanes catheter - Creatinine continues to improve - Urology consulted from the ER, appreciate recommendations. Will continue magallanes catheter. F/U w/ urology in [place] on discharge. They have signed off. Pt may discuss suprapubic catheter placement w/ her urologist - Nephrology also will see in [place] as outpatient. - avoid NSAIDs and macrobid #UTI - sediment in draining magallanes - prior urine cx resistant to levaquin - patient started on meropenem in the ED, . - consult ID. appreciate recs. Ertapenem daily as outpatient. Gen Surg placed Melo catheter yesterday. Will f/u w/ ID regarding duration of abx. # Incisional Hernia - may have elective surgery to repair this as outpatient - CT scan showed fat and no bowel in the hernia # Normocytic Anemia -likely due to chronic kidney issues -recently had a blood transfusion -will continue to monitor h/h and transfuse as needed # Intermittent hypoglycemia #DM, complicated by gastroparesis and neuropathy - Discontinued sliding scale and sulfonylurea. Likely the sulfonylurea is still washing out of her system. We will stop the D5 this morning and see how her sugars respond. - q4hr accuchecks and ACHS. - will give diet recommendations to follow at home #Urinary Incontinence -self-caths 3x/day. We will continue Magallanes Diet: Diabetic diet, CC DVT ppx: lovenox Code: FULL Dispo: discharge possible today if sugars remain stable and outpatient IV abx are coordinated. Pt has gone to [facility] in the past for IV abx. Addendum - Attending - Attending Attestation Date/Time: 04/09/19 6110 I personally evaluated the patient and discussed the management with Dr. Rodriguez I agree with the History, Examination, Assessment and Plan documented above with any addition or exceptions noted below. Patient blood sugars stable of D5 IVF patient and family understand stopping glimiperide and hypoglycemic precautions reviewed we patient and family. Patient given epogen and restarted home iron will continue watch outpt H/H and transfuse prn symptomatic or Hemoglobin 7 or less. Discussed diabetic gastropares and need frequent small meals. Patient understands recommendation for indewelling magallanes verse intermittent cath.
--- NOTE | 2019-04-09 07:51 | PRG ---
DATE OF SERVICE: 04/09/2019 SUBJECTIVE: The patient without complaints, doing well. Denies flank pain or chills. Daughter at bedside. OBJECTIVE: VITAL SIGNS: Stable. She is afebrile. I's and O's 2280 in and 2000 out. Urine output clear. ABDOMEN: Obese, protuberant. No CVA tenderness. PERTINENT LABORATORY DATA: Stable hemoglobin and hematocrit. Creatinine 1.8, which is near her baseline, improved. Admitting creatinine 2.9. IMPRESSION AND PLAN: 1. Ms. Patel is a 73-year-old female, followed by Dr. Ruano, [facility], with history of left atrophic kidney. 2. Chronic renal insufficiency. 3. History of right hydronephrosis due to right distal ureteral stricture status post dilatation and stent in 03/2019. 4. Neurogenic bladder with chronic incomplete emptying, failed outpatient clean intermittent catheterization. 5. History of hydronephrosis, right, status post stent, resolved with indwelling urethral Alexandra catheter and renal function back to her baseline. Discussed with the patient and family at bedside that she is a poor candidate for clean intermittent catheterization, due to her advanced age, and suboptimal catheterization. She is to be discharged with indwelling urethral Alexandra catheter. Consideration for suprapubic tube discussed, in which she may discuss this with her primary urologist. Continue IV meropenem due to multiresistant urinary tract infection. She was previously on Macrobid, which I do not recommend. From my perspective, she can be discharged, with indwelling urethral Alexandra catheter. Daughter is aware to call the patient's urologist DAVID for close followup next week. I will sign off. Discharge today, okay from my perspective. Job ID: [id number]
[2019-04-09] MEDS ORDERED: Epoetin (ESRD) 10,000 UNITS/ML VIAL SC SCH (08:45)
--- NOTE | 2019-04-09 08:54 | PRG ---
DATE OF SERVICE: 04/09/2019 SUBJECTIVE: A 73-year-old female being seen for acute kidney injury. The patient denied nausea, vomiting, or chest pain. PHYSICAL EXAMINATION: General: The patient is awake and alert. VITAL SIGNS: Afebrile, pulse 75, breathing at 16, blood pressure 124/66. HEENT: Head normocephalic and atraumatic. Eyes intact, no ulcers. Nose intact, no ulcers. Ears intact, no ulcers. NECK: Supple. No JVD. CHEST: Symmetrical and clear. CARDIOVASCULAR: Shows S1 and S2, no rub, no murmur. GASTROINTESTINAL: Abdomen is soft, bowel sounds positive. EXTREMITIES: Show no edema or ulcers. SKIN: Shows no rash or petechiae. MUSCULOSKELETAL: Shows no joint swelling or stiffness. GENITOURINARY: Shows no Alexandra or CVA tenderness. NEUROLOGIC: Motor intact. Cranial nerves intact. LABORATORY DATA: Hemoglobin 7.7. Creatinine 1.8. ASSESSMENT AND PLAN: 1. Acute kidney injury with chronic kidney disease, stage 4, stable. 2. Hypertension, stable. 3. Anemia. We would recommend transfusion and I will give Epogen one dose. 4. Medications based on GFR are appropriate. Job ID: [id number]
[2019-04-09] MEDS: Pioglitazone HCl 15 MG TAB PO SCH (09:07)
[2019-04-09] MEDS: Docusate 100 MG CAP PO SCH (09:08)
[2019-04-09] MEDS: Meropenem 500 MG in Sodium Chloride 0.9% 100 ML IVPB SCH (09:08)
[2019-04-09] MEDS: Famotidine/PF 20 mg/2ml Vial SLOW IVP SCH (09:08)
[2019-04-09 11:29] VITALS: BP 112/68; TEMP 98.5
[2019-04-09] MEDS ORDERED: EPOETIN ALFA-EPBX (ESRD) 10,000 UNIT/ML VIAL SC SCH (12:00)
--- NOTE | 2019-04-11 10:39 | CON ---
DATE OF CONSULTATION: ADDENDUM: 1. Incisional hernia with abdominal pain. Plan CAT scan of the abdomen and pelvis with p.o., but not IV contrast (CKD). Would probably plan outpatient repair of this incisional hernia robot mesh in the future. After completing a course of antibiotics for UTI and hydronephrosis. Job ID: [id number]
== END 2019-04-09 15:15 | disposition home health service (06) | DRG 699 ==
LOC: ERS 13:24 → SURG A 15:28
PROVIDERS: ADMIT Family Medicine; ATTEND Family Medicine
PROC: 02HV33Z Insertion of Infusion Device into Superior Vena Cava, Percutaneous Approach (ICD-10-PCS; principal; 2019-04-08)
PROC: B548ZZA Ultrasonography of Superior Vena Cava, Guidance (ICD-10-PCS; 2019-04-08)
PROC: B5181ZA Fluoroscopy of Superior Vena Cava using Low Osmolar Contrast, Guidance (ICD-10-PCS; 2019-04-08)
DX: N99.522 Malfunction of incontinent external stoma of urinary tract (principal); N13.6 Pyonephrosis; N17.9 Acute kidney failure, unspecified; N18.4 Chronic kidney disease, stage 4 (severe); Y83.8 Other surgical procedures as the cause of abnormal reaction of the patient, or of later complication, without mention of misadventure at the time of the procedure; E11.43 Type 2 diabetes mellitus with diabetic autonomic (poly)neuropathy; K31.84 Gastroparesis; E11.40 Type 2 diabetes mellitus with diabetic neuropathy, unspecified; R32 Unspecified urinary incontinence; D63.1 Anemia in chronic kidney disease; E11.22 Type 2 diabetes mellitus with diabetic chronic kidney disease; R33.8 Other retention of urine; E66.01 Morbid (severe) obesity due to excess calories; K43.2 Incisional hernia without obstruction or gangrene; E11.65 Type 2 diabetes mellitus with hyperglycemia; I12.9 Hypertensive chronic kidney disease with stage 1 through stage 4 chronic kidney disease, or unspecified chronic kidney disease; Z88.8 Allergy status to other drugs, medicaments and biological substances; Z79.4 Long term (current) use of insulin; Z90.710 Acquired absence of both cervix and uterus; Z90.49 Acquired absence of other specified parts of digestive tract; Z88.0 Allergy status to penicillin
CPT/HCPCS: 36415; 36416; 71045; 74018; 74177; 76770; 80048; 85014; 85018; 85025; 85610; 85730; 93970; C1751; G0365; J1610; J1642; J2185; J2405; J3010; J3490; Q5105; Q9967; S0020; S0028

== ENCOUNTER 2021-03-28 08:19 | Day surgery (SDC) | payer OTHER ==
[2021-03-22 15:01] VITALS: BMI 37.5
[2021-03-28 08:40] LABS: #Basophils 0.1 thou/uL (0.0-0.2); #Eosinphils 0.4 thou/uL (0.0-0.7); #Lymphocytes 2.2 thou/uL (1.20-3.40); #Monocytes 0.5 thou/uL (0.11-0.59); #Neutrophils 3.9 thou/uL (1.40-6.50); %Basophils 0.8 % (0.0-1.0); %Eosinophils 5.2 % (0.0-10.0); %Lymphocytes 31.4 % (21.0-51.0); %Neutrophils 55.6 % (42.0-75.0); Hemoglobin 9.7 g/dL (12.0-16.0); Mean Corpuscular HGB CONC 31.2 g/dL (32.0-36.0); Mean Corpuscular Hemoglobin 31.1 pg (27.0-31.0); Mean Corpuscular Volume 99.6 fL (78.0-98.0); Platelet Count 192 thou/uL (130-400); RBC Distribution Width 12.4 % (11.5-14.5); Red Blood Cell (RBC) Count 3.12 mill/uL (4.20-5.40); White Blood Cell (WBC) Count 7.1 thou/uL (4.8-10.8)
[2021-03-28 08:50] LABS: PTT 29.7 sec (22.9-36.1); Prothrombin Time 13.5 sec (12.0-14.7)
[2021-03-28 09:29] VITALS: BP 141/63; TEMP 98.1
== END 2021-03-28 14:00 | disposition home or self-care (01) ==
LOC: CT 08:19
PROVIDERS: ATTEND Internal Medicine Nephrology
PROC: 0TB03ZX Excision of Right Kidney, Percutaneous Approach, Diagnostic (ICD-10-PCS; principal; 2021-03-28)
DX: I12.9 Hypertensive chronic kidney disease with stage 1 through stage 4 chronic kidney disease, or unspecified chronic kidney disease (principal); E11.22 Type 2 diabetes mellitus with diabetic chronic kidney disease; N18.30 Chronic kidney disease, stage 3 unspecified; N17.9 Acute kidney failure, unspecified; R80.9 Proteinuria, unspecified; N13.30 Unspecified hydronephrosis; E11.43 Type 2 diabetes mellitus with diabetic autonomic (poly)neuropathy; K31.84 Gastroparesis; E78.5 Hyperlipidemia, unspecified; E66.01 Morbid (severe) obesity due to excess calories; Z68.37 Body mass index [BMI] 37.0-37.9, adult; Z87.440 Personal history of urinary (tract) infections; Z79.84 Long term (current) use of oral hypoglycemic drugs; Z79.899 Other long term (current) drug therapy; Z88.0 Allergy status to penicillin; Z88.5 Allergy status to narcotic agent
CPT/HCPCS: 50200; 77012; 85025; 85610; 85730; 88329